=== PATIENT | female | born 1990 | race African-American/Black ===

== ENCOUNTER 2017-02-19 00:01 | Emergency (ER) | payer SELFPAY ==
[~2017-02-19] VITALS: Ht 160 cm; Wt 65.8 kg
[2017-02-19] MEDS ORDERED: methylPREDNISolone SOD SUCC 125 MG/2 ML VL IM ONE (04:15)
[2017-02-19] MEDS ORDERED: diphenhdrAMINE HCL 50 MG/1 ML VL IM ONE (04:15)
[2017-02-19 04:27] VITALS: BP 122/62
== END 2017-02-19 04:31 | disposition home or self-care (01) ==
LOC: ER 00:02
DX: S50.862A Insect bite (nonvenomous) of left forearm, initial encounter (principal); T78.40XA Allergy, unspecified, initial encounter; W57.XXXA Bitten or stung by nonvenomous insect and other nonvenomous arthropods, initial encounter; Y93.89 Activity, other specified; Y92.89 Other specified places as the place of occurrence of the external cause; Y99.8 Other external cause status
CPT/HCPCS: 96372; 99284; J1200; J2930

== ENCOUNTER 2017-07-23 06:23 | Emergency (ER) | payer MEDICAID ==
[~2017-07-23] VITALS: Ht 160 cm; Wt 65.8 kg
[2017-07-23 06:50] VITALS: BP 100/65
[2017-07-23 07:00] LABS: Urine Bilirubin Negative (Negative); Urine Blood Negative /uL (Negative); Urine Color Yellow (Yellow); Urine Glucose Normal (Normal); Urine Ketone Negative (Negative); Urine Nitrite Negative (Negative); Urine RBC 1 /hpf (0 - 4); Urine Squamous Epithelial Cell FEW /hpf (<5); Urine Urobilinogen Normal (Negative)
[2017-07-23 07:11] LABS: Basophils # (auto) 0 uL; Basophils % (auto) 0.3 % (0.0-2.0); Eosinophils # (auto) 0.1 uL; Neutrophils # (auto) 1.6 uL; Nucleated Red Blood Cells % 0.4 %
[2017-07-23 07:13] LABS: Eosinophils % (auto) 2.3 % (0.0-7.0); Hematocrit 32.6 % (36.0-46.0); Hemoglobin 10.4 g/dL (12.2-16.2); Lymphocytes # (auto) 2.2 uL; Lymphocytes % (auto) 51.8 % (10.0-50.0); Mean Corpuscular Hemoglobin 24.7 pg (28.0-32.0); Mean Corpuscular Hgb Conc. 31.8 g/dL (32.0-36.0); Mean Corpuscular Volume 77.7 fL (80.0-100.0); Mean Platelet Volume 7.3 fL (6.9-10.8); Monocytes # (auto) 0.3 uL; Monocytes % (auto) 7.9 % (0.0-12.0); Neutrophils % (auto) 37.7 % (37.0-80.0); Platelet Count (auto) 341 10^3/uL (140-450); White Blood Cell 4.3 10^3/uL (4.4-10.8)
[2017-07-23 07:41] LABS: Albumin 3.6 g/dL (3.4-5.0); BUN/Creatinine Ratio 11.8; Bilirubin, Total 0.4 mg/dL (0.2-1.0); Calcium 8.4 mg/dL (8.5-10.1); Potassium 3.8 mmol/L (3.5-5.1); Total Protein 7.1 g/dL (6.4-8.2)
[2017-07-23] MEDS ORDERED: ONDANSETRON HCL 4 MG/2 ML VIAL IM ONE (08:00)
== END 2017-07-23 08:26 | disposition home or self-care (01) ==
LOC: ER 06:24
DX: T62.8X1A Toxic effect of other specified noxious substances eaten as food, accidental (unintentional), initial encounter (principal); K52.9 Noninfective gastroenteritis and colitis, unspecified; K80.20 Calculus of gallbladder without cholecystitis without obstruction; Y92.89 Other specified places as the place of occurrence of the external cause
CPT/HCPCS: 36415; 74176; 80053; 81001; 81025; 82150; 83690; 85025; 96372; 99285; J2405

== ENCOUNTER 2018-03-24 09:49 | Emergency (ER) | payer MEDICAID ==
[~2018-03-24] VITALS: Ht 160 cm; Wt 59.0 kg
[2018-03-24 10:06] VITALS: BP 113/66
== END 2018-03-24 12:40 | disposition left against medical advice (07) ==
LOC: ER 09:49
DX: R11.2 Nausea with vomiting, unspecified (principal); Z53.21 Procedure and treatment not carried out due to patient leaving prior to being seen by health care provider